=== PATIENT | male | born 1990 | race Caucasian/White ===

== ENCOUNTER 2018-01-01 08:34 | Emergency (ER) | payer SELFPAY ==
[~2018-01-01] VITALS: Ht 170.2 cm; Wt 88.0 kg
[2018-01-01 08:36] VITALS: TEMP 36.9; Ht 170.2 cm; Wt 88.0 kg
[2018-01-01 08:46] VITALS: O2SAT 99
[2018-01-01] MEDS ORDERED: ONDANSETRON INJ 2 MG/ML 2 ML VIAL IV STA (09:08)
[2018-01-01] MEDS ORDERED: SODIUM CHLORIDE 0.9% 1000ML 1,000 ML IV STA (09:08)
[2018-01-01 09:39] LABS: BASO % 0.2 %; BASO ABS # 0.02 K/uL (0-0.2); EOS % 1.3 %; EOS ABS # 0.12 K/uL (0-0.5); HEMOGLOBIN 17.6 g/dL (14.0-18.0); IG# 0.03 K/uL (0.00-0.02); LYMPH % 18.1 %; LYMPH ABS # 1.62 K/uL (1.2-3.4); MEAN CELL VOLUME 83.5 fL (80-100); MEAN CORPUSCULAR HEMOGLOBIN 30.6 pg (25-34); MEAN CORPUSCULAR HGB CONC 36.7 g/dl (32-36); MEAN PLATELET VOLUME 9.8 fL (7.4-10.4); MONO % 8.8 %; MONO ABS # 0.79 K/uL (0.11-0.59); NEUT % 71.3 %; NEUT ABS # 6.37 K/uL (1.4-6.5); PLATELET COUNT 181 K/uL (130-400); RED CELL DISTRIBUTION WIDTH CV 12.7 % (11.5-14.5); RED CELL DISTRIBUTION WIDTH SD 37.7 fL (36.4-46.3); WHITE BLOOD COUNT 8.95 K/uL (4.8-10.8)
--- NOTE | 2018-01-01 09:44 | DIAGNOSTIC IMAGING REPORT ---
CHEST ONE VIEW PORTABLE HISTORY: 27 years-old Male DIZZY, CHEST TIGHTNESS acute dizziness with chest tightness COMPARISON: None available TECHNIQUE: Portable AP view of the chest FINDINGS: Cardiomediastinal and hilar silhouettes are within normal limits. There is no pneumothorax, pleural effusion, focal airspace consolidation or overt pulmonary edema. The bones of the chest appear grossly intact. IMPRESSION: No acute process. The above report was generated using voice recognition software. It may contain grammatical, syntax or spelling errors. Electronically signed by: Levi Gillespie M.D. 01/01/2018 9:42 AM Dictated Date/Time: 01/01/2018 9:42 AM
[2018-01-01 09:49] LABS: PTT PATIENT 27.1 SECONDS (21.0-31.0)
[2018-01-01 09:59] LABS: ALBUMIN 4.2 gm/dl (3.4-5.0); ALT/SGPT 43 U/L (12-78); AST/SGOT 25 U/L (15-37); BLOOD UREA NITROGEN 16 mg/dl (7-18); CALCIUM 9.4 mg/dl (8.5-10.1); CARBON DIOXIDE 29 mmol/L (21-32); CREATININE 0.95 mg/dl (0.60-1.40); GLUCOSE 90 mg/dl (70-99); LIPASE 118 U/L (73-393); POTASSIUM 4.4 mmol/L (3.5-5.1); SODIUM 138 mmol/L (136-145)
[2018-01-01 10:07] LABS: ALKALINE PHOSPHATASE 62 U/L (45-117)
[2018-01-01] MEDS ORDERED: METOPROLOL TARTRATE 1 MG/ML VIAL IV STA (10:35)
[2018-01-01 11:46] VITALS: BP 155/104; PULSE 78; O2SAT 97
--- NOTE | 2018-01-01 12:08 | EMERGENCY ROOM VISIT NOTE ---
History First contact with patient: 08:41 Chief Complaint: CHEST PAIN Stated Complaint: TIGHTNESS CHEST, PAIN, DIZZINESS, LEG NUMBNESS Nursing Triage Summary: PT. woke up this morning at 0500 feeling like there was something wrapped tight around his chest 7/10. He felt dizzy at that time, N/V. He states he felt SOB at that time. Pt. rates his pain currently 4/10 with mild SOB and CP. Pt. appears healthy and in no distress. History of Present Illness Patient is an otherwise healthy 27-year-old white male who presents the emergency department accompanied by a female friend for evaluation dizziness and chest pain times, states that once he got out of bed, he began to feel dizzy , reports feeling a constant burning/tight pain in his chest and had numbness and tingling in his legs. He states that he laid back down but his symptoms 4 hours. He states that he was feeling well and was in his usual state of health yesterday. He states that he woke up around 5:00 this morning to get ready for work persisted. He was however able to fall back asleep for another 2 hours. When he woke up at 7 and got up the symptoms were still present and had worsened. He got up and showered at which point he vomited once and was trying to get ready for work when he was convinced to come to the emergency department by his friend. He reports feeling "weird" but is unable to really describe any further. He does still complain of dizziness and nausea. He has not eaten today. He has never had symptoms similar to this previously. He is healthy without any chronic medical problems or surgeries and does not take any medications. He drinks alcohol moderately, drinks about 3 beers last evening, denies tobacco or illicit drug use. 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 He denies any calf or leg pain or swelling. There is no family history of early cardiac disease or ME. He believes that his grandmother has high blood pressure. Review of Systems Review of systems as per HPI. All other systems reviewed were negative. 10 systems reviewed. Past Medical/Surgical History Medical Problems: (1) No Known Active Medical Problems Electronic medical records are reviewed and summarized as above/below. See Problem List. Social History Smoking Status: Never Smoker Alcohol Use: other (moderate) Drug Use: none Housing Status: lives with roommate Occupation Status: employed Current/Historical Medications No Active Prescriptions or Reported Meds Physical Exam Vital Signs Date Time Temp Pulse Resp B/P (MAP) Pulse Ox O2 Delivery O2 Flow Rate FiO2 01/01/18 11:46 78 20 155/104 97 Room Air 01/01/18 11:29 83 19 97 01/01/18 10:59 75 17 97 01/01/18 10:49 145/92 153/95 01/01/18 10:48 153/95 01/01/18 10:46 145/92 01/01/18 10:29 82 15 98 01/01/18 10:24 83 26 97 01/01/18 10:19 84 14 97 01/01/18 10:14 83 25 97 01/01/18 10:09 81 26 97 01/01/18 10:04 87 22 98 01/01/18 09:59 87 21 99 01/01/18 09:54 85 21 98 01/01/18 09:51 119/101 01/01/18 09:44 78 22 98 01/01/18 09:39 82 22 98 01/01/18 09:34 85 25 97 01/01/18 09:29 92 24 98 01/01/18 09:24 89 19 100 01/01/18 09:20 89 16 168/115 93 186/116 94 177/121 01/01/18 09:19 99 14 177/121 01/01/18 09:17 186/116 01/01/18 09:16 168/115 01/01/18 09:14 104 21 98 01/01/18 09:09 95 16 98 01/01/18 09:04 94 18 98 01/01/18 08:59 94 16 97 01/01/18 08:54 91 25 155/116 98 01/01/18 08:49 101 20 97 01/01/18 08:46 99 Room Air 01/01/18 08:44 93 15 98 01/01/18 08:44 99 01/01/18 08:43 151/107 01/01/18 08:43 97 Room Air 01/01/18 08:36 36.9 102 18 160/117 98 Room Air Physical Exam CONSTITUTIONAL: Patient is a well-appearing 27-year-old white male who is awake and alert and in no acute distress. Blood pressure in triage is 160/117, at the time of exam was 151/107. He is mildly tachycardic. EYES: Pupils equal, round, reactive to light and accommodation. EOMs intact without nystagmus. Sclera are anicteric. ENT: Tympanic membranes intact, with normal landmarks. External canals are clear. Oral and nasopharynx are clear. Mucous membranes are moist, no lesions , tongue and gums appear normal. NECK: No bruits auscultated. Supple without lymphadenopathy. No thyromegaly. No meningeal signs. Full active range of motion without discomfort. CARDIOVASCULAR: Regular rate and rhythm, with normal S1 and S2, no murmur or gallop or rub is heard. No carotid bruits auscultated. No JVD. Peripheral pulses easy to palpable. RESPIRATORY: Breath sounds equal and clear to auscultation without wheezes, rales, or rhonchi heard. Full and equal chest expansion without accessory muscle use or retractions. GI: Bowel sounds are present. Abdomen is soft, nontender, nondistended. No organomegaly. No pulsatile masses. No guarding or rebound. MUSCULOSKELETAL: Full range of motion of extremities x 4 with good strength. No cyanosis, edema, joint tenderness or swelling. No deformity. INTEGUMENTARY: No lesions or rash, normal skin turgor. NEUROLOGICAL: Alert, oriented, and cooperative. Cranial nerves, sensation and strength grossly intact. Normal gait. LYMPH: No lymphadenopathy. Medical Decision & Procedures ER Provider Diagnostic Interpretation: CHEST ONE VIEW PORTABLE HISTORY: 27 years-old Male DIZZY, CHEST TIGHTNESS acute dizziness with chest tightness COMPARISON: None available TECHNIQUE: Portable AP view of the chest FINDINGS: Cardiomediastinal and hilar silhouettes are within normal limits. There is no pneumothorax, pleural effusion, focal airspace consolidation or overt pulmonary edema. The bones of the chest appear grossly intact. IMPRESSION: No acute process. Laboratory Results 01/01/18 09:25 Red Blood Count 5.75, Mean Corpuscular Volume 83.5, Mean Corpuscular Hemoglobin 30.6, Mean Corpuscular Hemoglobin Concent 36.7, Mean Platelet Volume 9.8, Neutrophils (%) (Auto) 71.3, Lymphocytes (%) (Auto) 18.1, Monocytes (%) (Auto) 8.8, Eosinophils (%) (Auto) 1.3, Basophils (%) (Auto) 0.2, Neutrophils # (Auto) 6.37, Lymphocytes # (Auto) 1.62, Monocytes # (Auto) 0.79, Eosinophils # (Auto) 0.12, Basophils # (Auto) 0.02 01/01/18 09:25 Test 01/01/18 09:25 01/01/18 09:27 01/01/18 09:40 White Blood Count 8.95 K/uL (4.8-10.8) Red Blood Count 5.75 M/uL (4.7-6.1) Hemoglobin 17.6 g/dL (14.0-18.0) Hematocrit 48.0 % (42-52) Mean Corpuscular Volume 83.5 fL (80-100) Mean Corpuscular Hemoglobin 30.6 pg (25-34) Mean Corpuscular Hemoglobin Concent 36.7 g/dl (32-36) Platelet Count 181 K/uL (130-400) Mean Platelet Volume 9.8 fL (7.4-10.4) Neutrophils (%) (Auto) 71.3 % Lymphocytes (%) (Auto) 18.1 % Monocytes (%) (Auto) 8.8 % Eosinophils (%) (Auto) 1.3 % Basophils (%) (Auto) 0.2 % Neutrophils # (Auto) 6.37 K/uL (1.4-6.5) Lymphocytes # (Auto) 1.62 K/uL (1.2-3.4) Monocytes # (Auto) 0.79 K/uL (0.11-0.59) Eosinophils # (Auto) 0.12 K/uL (0-0.5) Basophils # (Auto) 0.02 K/uL (0-0.2) RDW Standard Deviation 37.7 fL (36.4-46.3) RDW Coefficient of Variation 12.7 % (11.5-14.5) Immature Granulocyte % (Auto) 0.3 % Immature Granulocyte # (Auto) 0.03 K/uL (0.00-0.02) Prothrombin Time 10.2 SECONDS (9.0-12.0) Prothromb Time International Ratio 1.0 (0.9-1.1) Activated Partial Thromboplast Time 27.1 SECONDS (21.0-31.0) Partial Thromboplastin Ratio 1.0 Anion Gap 5.0 mmol/L (3-11) Est Creatinine Clear Calc Drug Dose 124.8 ml/min Estimated GFR () 127.5 Estimated GFR (Non- 110.0 BUN/Creatinine Ratio 16.5 (10-20) Calcium Level 9.4 mg/dl (8.5-10.1) Total Bilirubin 0.3 mg/dl (0.2-1) Aspartate Amino Transf (AST/SGOT) 25 U/L (15-37) Alanine Aminotransferase (ALT/SGPT) 43 U/L (12-78) Alkaline Phosphatase 62 U/L (45-117) Troponin I < 0.015 ng/ml (0-0.045) Total Protein 8.0 gm/dl (6.4-8.2) Albumin 4.2 gm/dl (3.4-5.0) Globulin 3.8 gm/dl (2.5-4.0) Albumin/Globulin Ratio 1.1 (0.9-2) Lipase 118 U/L (73-393) Thyroid Stimulating Hormone (TSH) 2.150 uIu/ml (0.300-4.500) Bedside D-Dimer 125 ng/mlFEU (0-450) Urine Opiates Screen NEG (NEG) Urine Methadone, Qualitative NEG (NEG) Urine Barbiturates NEG (NEG) Urine Phencyclidine (PCP) Level NEG (NEG) Ur Amphetamine/Methamphetamine NEG (NEG) MDMA (Ecstasy) Screen NEG (NEG) Urine Benzodiazepines Screen NEG (NEG) Urine Cocaine Metabolite NEG (NEG) Urine Marijuana (THC) NEG (NEG) Medications Administered Medications (Trade) Dose Ordered Sig/Erasto Route Start Time Stop Time Status Last Admin Dose Admin Sodium Chloride 1,000 ml @ 999 mls/hr Q1H1M STAT IV 01/01/18 09:08 01/01/18 10:08 DC 01/01/18 09:18 999 MLS/HR Ondansetron HCl (Zofran Inj) 4 mg NOW STAT IV 01/01/18 09:08 01/01/18 09:10 DC 01/01/18 09:18 4 MG ECG Per My Interpretation Indication: SOB/dyspnea, other (Dizziness) Rate (beats per minute): 93 Rhythm: normal sinus Findings: no acute ischemic change, no ectopy Comparison ECG Date: no prior available ED Course The patient was seen and evaluated as above. He has never been seen at this facility previously and has no old records. He was noted to be hypertensive and tachycardic initially, and this was monitored. EKG was performed and was as noted above. IV lock was initiated and the patient was placed on a case monitor. CBC with differential, coags, CMP, lipase, TSH and troponin were performed. The patient was not orthostatic by vital signs, and remained hypertensive for roughly 2 hours, at which point his blood pressure began to improve on its own. The patient history, presentation and ED workup were reviewed with attending physician. Chest x-ray was obtained and was unremarkable. Laboratory studies noted a normal white count and H&H. Platelet count is normal. Coags are unremarkable. [id number] d-dimer is well within normal limits at 125, given this and lack of PE risk factors, CT for PE was not pursued. No electrolyte, renal or liver function abnormalities were noted. Cardiac enzymes are negative 1. Lipase is normal. TSH is indicative of a euthyroid state. Urine dip was clear and urine toxicology screen is negative. As stated above, the patient was observed on the monitor for roughly 2 hours. He had systolic blood pressure readings as high as 186, diastolic 121. The patient was reviewed with attending physician, and metoprolol IV was ordered, however on reassessment, the patient's blood pressure had improved into the [id number] over 90s on its own and therefore metoprolol was held. The etiology of the patient's symptoms is unclear at this time. He could have undiagnosed hypertension as he does not follow with a physician regularly. He does not have any EKG changes and cardiac enzymes are not indicative of ischemic process. Differential diagnoses entertained also included electrolyte or metabolic abnormality, dehydration, vertigo, acute myocardial infarction, acute coronary syndrome, myocarditis, pericarditis, pulmonary embolism, pneumonia, pneumothorax, cardiomyopathy, congestive heart failure, musculoskeletal, anxiety , costochondritis, among others. The patient was encouraged to check his blood pressure frequently and record the readings so that he can follow-up with his primary care provider. He was welcome to return to the emergency department at any point if his symptoms worsen. He expressed understanding of this and was agreeable. The patient was discharged home in stable condition with his female friend. Medical Decision See ED Course. [place] Drug Monitoring Program Search Results: patient reviewed within database, no issues identified Medication Reconcilliation Current Medication List: was personally reviewed by me Blood Pressure Screening Patient's blood pressure: Elevated blood pressure Blood pressure disposition: Referred to PCP Impression Primary Impression: Chest pain Additional Impressions: Hypertension Dizziness Departure Information Prescriptions No Active Prescriptions or Reported Meds Referrals No Doctor, Assigned (PCP) Patient Instructions [facility] Additional Instructions Monitor your blood pressure frequently over the next couple of weeks, and at different times of the day. Record your readings for follow-up with your primary care provider. Rest and drink plenty of fluids as tolerated. Continue current medications. Avoid strenuous activities and anything that worsens your pain. Resume normal activities once your symptoms resolve. Return to the ER immediately for worsening or persistent chest pain, abdominal pain, vomiting, fevers, chest pains, difficulty breathing, worsening of your condition, or as needed. Follow up with your primary physician in 2-3 days for a recheck of your current condition. Problem Qualifiers
== END 2018-01-01 12:15 | disposition home or self-care (01) ==
LOC: C.EDB 08:36 → C.EDA 12:15
DX: R07.9 Chest pain, unspecified (principal); I10 Essential (primary) hypertension; R42 Dizziness and giddiness

== ENCOUNTER → 2018-06-07 | Outpatient (CLI) | payer OTHER | END | disposition home or self-care (01) | LOC: C.LAB 01:35 | DX: Z02.83 Encounter for blood-alcohol and blood-drug test (principal) ==